=== PATIENT | male | born 1945 | race Caucasian/White ===

== ENCOUNTER 2021-09-27 23:40 | Inpatient (IN) | payer MEDICARE, OTHER ==
[~2021-09-27] VITALS: Ht 170.2 cm; Wt 90.7 kg
[~2021-09-27 23:40] MED LIST: ATOR10TA PO; ESCI10TA PO
[2021-09-28] MEDS ORDERED: ONDANSETRON 4 MG/2 ML VIAL IV ONE ×2 (00:15→01:30)
[2021-09-28] MEDS ORDERED: IV NORMAL SALINE 500 ML IV ONE ×2 (00:15→03:15)
[2021-09-28] MEDS ORDERED: FENTANYL CITRATE 100 MCG/2 ML AMPUL IV ONE (00:15)
[2021-09-28] MEDS ORDERED: ASPI81TA31 PO (00:42)
[2021-09-28] MEDS ORDERED: METH-807 PO (00:42)
[2021-09-28] MEDS ORDERED: POTA10CA43 PO (00:42)
[2021-09-28] MEDS ORDERED: APIX5TAB PO (00:42)
[2021-09-28] MEDS ORDERED: ESCI20TA44 PO (00:42)
[2021-09-28] MEDS ORDERED: RANO10003 PO (00:42)
[2021-09-28] MEDS ORDERED: FURO20TA4 PO (00:42)
[2021-09-28] MEDS ORDERED: GABA-532 PO (00:42)
--- NOTE | 2021-09-28 00:44 | NUR ---
Patient ambulated with steady gait. Speech clear, speaks in complete sentences. A/Ox4 no evidence of any acute neuro deficits. Patient came for c/o feeling "bloated", bowel movements have decreased in frequency and consistency recently. Reports feeling nauseous with no active vomiting. Patient in bed at lowest position, sr upx2, call light within reach. Fall and safety precautions implemented per protocol.
[2021-09-28] MEDS ORDERED: ONDANSETRON 4 MG/2 ML VIAL ONE ×2 (00:46→01:26)
[2021-09-28] MEDS ORDERED: FENTANYL CITRATE 100 MCG/2 ML AMPUL ONE (00:46)
[2021-09-28 00:51] LABS: HEMATOCRIT 40.6 % (36.7-47.1); MEAN CORPUSCULAR HEMOGLOBIN 33.7 uug (23.8-33.4); MEAN CORPUSCULAR VOLUME 95.6 fL (73.0-96.2); PLATELET COUNT (AUTO) 269 K/uL (152-348)
[2021-09-28 01:08] LABS: CARBON DIOXIDE 28 mmol/L (21-32); CHLORIDE 104 mmol/L (98-107); CREATININE 1.4 mg/dL (0.6-1.3); GLUCOSE 179 mg/dL (74-106); POTASSIUM 4.2 mmol/L (3.5-5.1); UREA NITROGEN, BLOOD 19 mg/dL (7-18)
[2021-09-28 01:22] LABS: ALANINE AMINOTRANSFERASE 22 U/L (16-63); ALKALINE PHOSPHATASE 79 U/L (50-136); ASPARTATE AMINOTRANSFERASE 21 U/L (15-37); BILIRUBIN,DIRECT 0.2 mg/dL (0.0-0.2); BILIRUBIN,TOTAL 1.1 mg/dL (0.2-1.0); LIPASE 82 U/L (73-393); TOTAL PROTEIN, SERUM 7.5 g/dL (6.4-8.2)
[2021-09-28] MEDS ORDERED: KETOROLAC TROMETHAMINE 30 MG INJ IM ONE (01:30)
[2021-09-28] MEDS ORDERED: METOCLOPRAMIDE HCL 10 MG/2 ML VIAL ONE (02:15)
[2021-09-28] MEDS ORDERED: diphenhydrAMINE 50 MG/1 ML VIAL ONE (02:15)
[2021-09-28] MEDS ORDERED: diphenhydrAMINE 50 MG/1 ML VIAL IV ONE ×2 (02:45→14:20)
[2021-09-28] MEDS ORDERED: METOCLOPRAMIDE HCL 10 MG/2 ML VIAL IV ONE (02:45)
[2021-09-28] MEDS ORDERED: Z GUARD REMEDY PASTE 57 GM TUBE TOP PRN (03:15)
[2021-09-28] MEDS ORDERED: ACETAMINOPHEN 325 MG TABLET PO PRN (03:15)
[2021-09-28] MEDS ORDERED: MAGNESIUM HYDROXIDE 30 ML LIQUID UDC PO PRN (03:15)
--- NOTE | 2021-09-28 03:15 | NUR ---
[facility] Mcconnell aware of patient case. Awaiting to transport patient to inpatient floor.
[2021-09-28 03:34] LABS: *BILIRUBIN,URIN 1+ (NEGATIVE); *BLOOD, URINE NEGATIVE (NEGATIVE); *CLARITY,URINE CLEAR (CLEAR); *COLOR,URINE AMBER (YELLOW); *KETONES,URINE NEGATIVE (NEGATIVE); *UROBILINOGEN,URINE 0.2 E.U./dl (NORMAL); LEUKOCYTE ESTERASE ,URINE NEGATIVE (NEGATIVE); NITRITE, URINE NEGATIVE (NEGATIVE); UGLUCOSE NEGATIVE (NEGATIVE)
[2021-09-28 03:47] LABS: RBC,URINE 0-3 /HPF (0-3); WBC,URINE 0-3 /HPF (0-3)
[2021-09-28 03:48] LABS: BACTERIA,URINE NONE SEEN /HPF (NONE SEEN); SQUAMOUS EPITHELIAL CELL,UR MODERATE /HPF (NONE SEEN)
[2021-09-28] MEDS: HYDROMORPHONE 1 MG/1 ML DISP.SYRIN IV PRN ×2 (04:25→10:45)
[2021-09-28 05:00] VITALS: BP 136/90
[2021-09-28] MEDS: IV NS 1000 ML 1,000 ML IV PRN ×2 (07:26→22:19)
[2021-09-28] MEDS: METOCLOPRAMIDE HCL 10 MG/2 ML VIAL IV SCH ×3 (07:26→16:42)
[2021-09-28] MEDS: ASPIRIN 81 MG TAB.CHEW PO SCH (07:47)
[2021-09-28] MEDS: GABAPENTIN 100 MG CAPSULE PO SCH ×3 (07:52→16:40)
[2021-09-28] MEDS: RANOLAZINE 500 MG TAB.ER.12H PO SCH ×2 (07:52→16:41)
[2021-09-28] MEDS: METHOCARBAMOL 750 MG TABLET PO SCH ×4 (07:53→20:04)
[2021-09-28] MEDS ORDERED: DIATR MEGLU/DIATRIZOATE SODIUM 30 ML BOTTLE ONE ×2 (08:46→10:37)
[2021-09-28] MEDS: ESCITALOPRAM OXALATE 10 MG TABLET PO SCH (09:00)
--- NOTE | 2021-09-28 09:58 | NUR ---
SEEN BY DR MELISSA FOR CONSULT SEE NOTES. AWAITING SMALL BOWEL FOLLOW THROUGH
[2021-09-28 12:00] VITALS: BP 154/75
--- NOTE | 2021-09-28 14:18 | NUR ---
C/O ITCHINESS DR SPIVEY NOTIFIED WITH ORDER TO GIVE BENADRYL X 1
[2021-09-28 16:12] VITALS: BP 148/83
--- NOTE | 2021-09-28 18:42 | NUR ---
NO FURTHER ITCHINESS NOTED, KEPT NPO ORDERED WITH IVF GOING, NO N/V. AFEBRILE
[2021-09-28] MEDS ORDERED: HYDROCODONE/APAP 10-325 MG TABLET PO PRN (20:00)
[2021-09-28] MEDS: APIXABAN 5 MG TABLET PO SCH (20:05)
[2021-09-28 20:57] VITALS: BP 161/84
[2021-09-29 05:07] VITALS: BP 158/79
[2021-09-29] MEDS: METOCLOPRAMIDE HCL 10 MG/2 ML VIAL IV SCH ×3 (05:08→12:11)
[2021-09-29] MEDS: HYDROMORPHONE 1 MG/1 ML DISP.SYRIN IV PRN (05:17)
[2021-09-29 06:58] LABS: MEAN CORPUSCULAR HEMOGLOBIN 32.6 uug (23.8-33.4); MEAN CORPUSCULAR VOLUME 95.9 fL (73.0-96.2); PLATELET COUNT (AUTO) 234 K/uL (152-348)
--- NOTE | 2021-09-29 07:20 | NUR ---
Patient resting in bed. AOx4. On room air. No signs of acute distress. Patient denies pain/ discomfort at this time. IV access patent and intact. Call light within reach. Bed alarm on for safety. Will continue to monitor.
[2021-09-29 07:39] LABS: BILIRUBIN,TOTAL 1.1 mg/dL (0.2-1.0); CREATININE 1.1 mg/dL (0.6-1.3); MAGNESIUM 2.1 mg/dL (1.8-2.4); POTASSIUM 3.9 mmol/L (3.5-5.1); TOTAL PROTEIN, SERUM 7.1 g/dL (6.4-8.2)
[2021-09-29] MEDS ORDERED: diphenhydrAMINE 50 MG/1 ML VIAL IV PRN (08:00)
[2021-09-29] MEDS: APIXABAN 5 MG TABLET PO SCH (09:00)
[2021-09-29] MEDS: GABAPENTIN 100 MG CAPSULE PO SCH ×2 (09:00→12:11)
[2021-09-29] MEDS: METHOCARBAMOL 750 MG TABLET PO SCH ×2 (09:00→12:13)
[2021-09-29] MEDS: RANOLAZINE 500 MG TAB.ER.12H PO SCH (09:00)
[2021-09-29] MEDS: ESCITALOPRAM OXALATE 10 MG TABLET PO SCH (09:00)
[2021-09-29] MEDS: ASPIRIN 81 MG TAB.CHEW PO SCH (09:00)
[2021-09-29 11:51] VITALS: BP 143/89
--- NOTE | 2021-09-29 14:12 | NUR ---
Discharged patient to home. AOx4. On room air. No signs of acute distress. Discharge instructions given to patient and patient verbalized understanding. Belongings accounted for and belongings list signed. IV access removed. ID armband removed. Patient left hospital via private car.
== END 2021-09-29 14:00 | disposition home or self-care (01) | DRG 391 ==
LOC: ER 23:49 → MEDSURG3 09-28 05:00
PROVIDERS: ADMIT Hospitalist; ATTEND Hospitalist
DX: K59.00 Constipation, unspecified (principal); N17.0 Acute kidney failure with tubular necrosis; Z95.5 Presence of coronary angioplasty implant and graft; Z79.01 Long term (current) use of anticoagulants; R11.0 Nausea; I25.10 Atherosclerotic heart disease of native coronary artery without angina pectoris; E78.5 Hyperlipidemia, unspecified; G62.9 Polyneuropathy, unspecified; Z86.73 Personal history of transient ischemic attack (TIA), and cerebral infarction without residual deficits; R73.9 Hyperglycemia, unspecified
CPT/HCPCS: 36415; 70030-TC; 74018; 74250; 83605; 83690; 83735; 84100; 85025; 87040; 93005; A4663; G0378; J1170; J1200; J2405; J2765; J3010; J7030; Q9963